=== PATIENT | female | born 1945 | race Caucasian/White ===

== ENCOUNTER → 2016-08-26 | Outpatient (CLI) | payer MEDICARE, BC ==
--- NOTE | ~2016-08-26 | MY11 ---
[facility] A Service [facility] RADIOLOGY TEXT RESULTS PATIENT: LORIE UMAÑA LOCATION: [facility] : 49 UNIT #: [id number] AGE: [address]: Louie Edwards MD SEX: F ORDER DR: [id number] [place] [id number] MR#: [id number] Acc #: [id number] NAME: LORIE UMAÑA : 1945 SEX: F STUDY DATE/TIME: 08/26/2016 12:05 UNIT: [facility] ROOM: STUDY DESCRIPTION: MY Mammogram Screening Dig [place]odi Attending Physician: Louie Edwards M.D. Referring Physician: Louie Edwards M.D. Ordering Physician: Louie Edwards M.D. Primary Care Physician: Louie Edwards M.D. MEDICAL IMAGING REPORT This report is preliminary unless electronic signature is present. EXAM Bilateral digital screening mammogram with CAD 08/26/2016. IMPRESSION 70-year-old asymptomatic female with no personal history breast cancer. Patient has a positive family history of breast cancer. FINDINGS Background breast parenchyma consists of scattered fibroglandular densities. No suspicious mass, microcalcification, architectural distortion. Exam is compared to prior mammogram dated 04/27/2015. IMPRESSION Negative mammogram. RECOMMENDATIONS Annual screening mammogram. BIRADS: 1 Negative. Patients over the age of 40 are entered into a reminder system with target due date for the next mammogram. A result letter will also be sent to the patient. Dictated by... Pedro Garay M.D. THIS IS AN ELECTRONICALLY VERIFIED REPORT [facility] A Service [facility] RADIOLOGY TEXT RESULTS PATIENT: LORIE UMAÑA LOCATION: [facility] : 49 UNIT #: [id number] AGE: [address]: Louie Edwards MD SEX: F ORDER DR: Pedro Garay M.D. at 08/26/2016 5:15 PM RPC/gustavo TD: 08/26/2016 15:36 JOB #: [id number] MEDICAL IMAGING REPORT Page 1 of 1
== END | disposition home or self-care (01) ==
LOC: SMAM 11:19
DX: Z12.31 Encounter for screening mammogram for malignant neoplasm of breast (principal); Z80.3 Family history of malignant neoplasm of breast
CPT/HCPCS: G0202